=== PATIENT | female | born 1960 | race Caucasian/White ===

== ENCOUNTER 2023-05-20 15:33 | Inpatient (IN) | payer MEDICAID ==
[~2023-05-20] VITALS: Ht 157.5 cm; Wt 77.2 kg
[2023-05-20 15:58] LABS: BASOPHILS # (AUTO) 0.1 X10'3 (0-0.2); BASOPHILS % (AUTO) 0.8 % (0-1); EOSINOPHILS # (AUTO) 0.2 X10'3 (0-0.9); EOSINOPHILS % (AUTO) 1.4 % (0-6); HEMOGLOBIN 13.3 g/dl (12.0-16.0); LYMPHOCYTES % (AUTO) 17.6 % (21-51); MEAN CORPUSCULAR HEMOGLOBIN 30.2 PG (27.0-31.0); MEAN CORPUSCULAR HGB CONC 33.4 g/dL (33.0-36.5); MEAN CORPUSCULAR VOLUME 90.6 FL (78-98); MEAN PLATELET VOLUME 8.2 FL (7.4-10.4); MONOCYTES # (AUTO) 0.9 X10'3 (0-0.9); MONOCYTES % (AUTO) 7.4 % (2-12); NEUTROPHILS # (AUTO) 8.4 X10'3 (1.8-7.7); NEUTROPHILS % (AUTO) 72.8 % (42-75); PLATELET COUNT 302 X10'3 (140-440); RED BLOOD COUNT 4.41 X10'6 (4.20-5.60); RED CELL DISTRIBUTION WIDTH 14.2 % (11.5-14.5); WHITE BLOOD COUNT 11.5 X10'3 (4.5-11.0)
[2023-05-20 16:16] LABS: ALANINE AMINOTRANSFERASE 27 U/L (12-78); ALBUMIN 4.2 G/DL (3.4-5.0); ALBUMIN/GLOBULIN RATIO 1.1 (1.1-1.5); ALKALINE PHOSPHATASE 64 IU/L (46-116); ANION GAP 12 (8-16); ASPARTATE AMINO TRANSFERASE 17 U/L (10-37); BILIRUBIN,TOTAL 0.9 MG/DL (0.1-1.0); BLOOD UREA NITROGEN 16 MG/DL (7-18); BUN/CREATININE RATIO 17.2 (10.0-20.0); CALCIUM 9.6 MG/DL (8.5-10.1); CHLORIDE 101 MMOL/L (99-107); CREATININE 0.93 MG/DL (0.40-0.90); GLUCOSE 120 MG/DL (70-104); POTASSIUM 4.6 MMOL/L (3.5-5.1); SODIUM 139 MMOL/L (135-145); TOTAL CARBON DIOXIDE 26.3 MMOL/L (24-32); TOTAL PROTEIN 8.2 G/DL (6.4-8.2); eCRCL 48 ML/MIN; eGFR 61 ML/MIN
[2023-05-20 16:22] LABS: PRO BRAIN NATRIURETIC PEPTIDE 2288 PG/ML (0-125)
[2023-05-20 16:53] LABS: D-DIMER 21.47 MG/L FEU (0-0.50)
[2023-05-20] MEDS ORDERED: heparin 10,000 units/1 ML INJ IV ONE ×2 (19:40→20:05)
[2023-05-20] MEDS ORDERED: iohexol 350MG/ML 100ml bottle IV ONE (19:47)
[2023-05-20 20:49] LABS: PROTHROMBIN TIME 10.4 SECONDS (9.0-12.0)
[2023-05-20] MEDS: heparin 25,000 UNIT/250ml bag 250 ML IV PRN (21:56)
[2023-05-20 22:16] LABS: BILIRUBIN,URINE NEGATIVE (Neg); CLARITY,URINE CLEAR (Clear); COLOR,URINE YELLOW (Yellow); GLUCOSE, URINE NEGATIVE (Neg); KETONES,URINE TRACE mg/dl (Neg); LEUKOCYTE ESTERASE ,URINE NEGATIVE (Neg); NITRITES, URINE NEGATIVE (Neg); OCCULT BLOOD,URINE TRACE-INTACT (Neg); PH,URINE 6.5 (4.8-8.0); PROTEIN,URINE 30 mg/dl (Neg); UROBILINOGEN,URINE 0.2 E.U/dL (0.2-1.0)
[2023-05-20 22:18] LABS: UA COLLECTION TYPE NON-SPECIFIED
[2023-05-20 22:25] LABS: MUCUS STRANDS NONE SEEN /LPF (Neg); SQUAMOUS EPITHELIAL CELL,UR FEW /LPF (FEW)
[2023-05-20 22:26] LABS: BACTERIA,URINE NONE SEEN /HPF (Neg); RBC,URINE 0-2 /HPF (0-2); WBC,URINE 0-4 /HPF (0-4)
[2023-05-20] MEDS ORDERED: potassium Cl 20 mEq SR tablet PO PRN (23:10)
[2023-05-20] MEDS ORDERED: magnesium 2GM in 50ml NS 50 ML IV PRN (23:10)
[2023-05-20] MEDS ORDERED: acetaminophen 325mg tablet PO PRN (23:10)
[2023-05-20] MEDS ORDERED: potassium Cl 40MEQ/1/2NS 520ml 520 ML IV PRN (23:10)
[2023-05-20] MEDS ORDERED: magnesium hydroxide 30ml (MOM) UD suspension PO PRN (23:10)
[2023-05-20] MEDS ORDERED: magnesium Cl slow-release 64mg tablet PO PRN (23:10)
[2023-05-20] MEDS ORDERED: magnesium 4gm in 100ml NS 100 ML IV PRN (23:10)
[2023-05-20] MEDS ORDERED: mag hydrox/Alum hydrox/simeth 30ml oral suspension PO PRN (23:10)
[2023-05-20] MEDS ORDERED: ondansetron/PF 4mg/2ml inj IV PRN (23:10)
[2023-05-21 03:58] LABS: BASOPHILS # (AUTO) 0.1 X10'3 (0-0.2); BASOPHILS % (AUTO) 0.6 % (0-1); EOSINOPHILS # (AUTO) 0.2 X10'3 (0-0.9); EOSINOPHILS % (AUTO) 1.7 % (0-6); HEMATOCRIT 36.2 % (35.0-45.0); HEMOGLOBIN 12.2 g/dl (12.0-16.0); LYMPHOCYTES # (AUTO) 3.4 X10'3 (1.1-4.8); MEAN CORPUSCULAR HEMOGLOBIN 30.3 PG (27.0-31.0); MEAN CORPUSCULAR HGB CONC 33.7 g/dL (33.0-36.5); MEAN CORPUSCULAR VOLUME 89.8 FL (78-98); MEAN PLATELET VOLUME 8.1 FL (7.4-10.4); MONOCYTES # (AUTO) 0.7 X10'3 (0-0.9); MONOCYTES % (AUTO) 6.6 % (2-12); NEUTROPHILS % (AUTO) 58.1 % (42-75); PLATELET COUNT 264 X10'3 (140-440); RED BLOOD COUNT 4.03 X10'6 (4.20-5.60); RED CELL DISTRIBUTION WIDTH 14.2 % (11.5-14.5); WHITE BLOOD COUNT 10.4 X10'3 (4.5-11.0)
[2023-05-21 04:08] LABS: ALANINE AMINOTRANSFERASE 19 U/L (12-78); ALBUMIN 3.4 G/DL (3.4-5.0); ALBUMIN/GLOBULIN RATIO 0.9 (1.1-1.5); ALKALINE PHOSPHATASE 48 IU/L (46-116); ANION GAP 10 (8-16); ASPARTATE AMINO TRANSFERASE 20 U/L (10-37); BILIRUBIN,TOTAL 1.1 MG/DL (0.1-1.0); BLOOD UREA NITROGEN 11 MG/DL (7-18); BUN/CREATININE RATIO 16.7 (10.0-20.0); CALCIUM 8.9 MG/DL (8.5-10.1); CHLORIDE 103 MMOL/L (99-107); CREATININE 0.66 MG/DL (0.40-0.90); GLUCOSE 124 MG/DL (70-104); MAGNESIUM 2.1 MG/DL (1.5-2.4); POTASSIUM 3.4 MMOL/L (3.5-5.1); SODIUM 140 MMOL/L (135-145); TOTAL CARBON DIOXIDE 27.3 MMOL/L (24-32); TOTAL PROTEIN 7.2 G/DL (6.4-8.2); eCRCL 68 ML/MIN; eGFR 90 ML/MIN
[2023-05-21] MEDS: HYDROcodone/acetaminophen 5mg/325mg tablet PO PRN ×3 (04:37→19:36)
[2023-05-21] MEDS: docusate sod 100mg capsule PO SCH ×2 (08:00→19:24)
[2023-05-21] MEDS: K and/or MAG REPLACEMENT MC SCH ×2 (08:00→19:38)
[2023-05-21] MEDS: potassium Cl 20 mEq SR tablet PO PRN ×2 (10:32→19:40)
[2023-05-21] MEDS ORDERED: DICL20GE TOP (11:11)
[2023-05-21] MEDS ORDERED: HYDR-3965 PO (11:11)
[2023-05-21] MEDS ORDERED: TRIA15CR62 TOP (11:22)
[2023-05-21] MEDS ORDERED: HYDROcodone/acetaminophen 5mg/325mg tablet PO PRN (14:55)
[2023-05-21] MEDS: DICLOFENAC SODIUM 1% gel 1 APPLIC APPLIC TP SCH (21:00)
[2023-05-21 22:00] VITALS: BP 172/109; PULSE 89; RESP 14; TEMP 98.5; O2SAT 97
[2023-05-22] VITALS (9 sets, daily range): BP systolic 114–134; BP diastolic 69–94; PULSE 76–95; RESP 11–23; TEMP 97.7–98.9; O2SAT 93–100
[2023-05-22] MEDS: HYDROcodone/acetaminophen 5mg/325mg tablet PO PRN ×5 (00:29→21:06)
[2023-05-22] MEDS: heparin 10,000 units/1 ML INJ IV PRN ×2 (02:36→21:20)
[2023-05-22] MEDS: DICLOFENAC SODIUM 1% gel 1 APPLIC APPLIC TP SCH ×4 (07:05→21:09)
[2023-05-22] MEDS: docusate sod 100mg capsule PO SCH ×2 (07:07→21:05)
[2023-05-22] MEDS: K and/or MAG REPLACEMENT MC SCH ×2 (08:00→18:24)
[2023-05-22 08:31] LABS: BASOPHILS # (AUTO) 0.1 X10'3 (0-0.2); BASOPHILS % (AUTO) 0.6 % (0-1); EOSINOPHILS # (AUTO) 0.2 X10'3 (0-0.9); EOSINOPHILS % (AUTO) 2.6 % (0-6); HEMATOCRIT 36.8 % (35.0-45.0); HEMOGLOBIN 12.2 g/dl (12.0-16.0); LYMPHOCYTES # (AUTO) 2.4 X10'3 (1.1-4.8); LYMPHOCYTES % (AUTO) 27.6 % (21-51); MEAN CORPUSCULAR HEMOGLOBIN 30.1 PG (27.0-31.0); MEAN CORPUSCULAR HGB CONC 33.1 g/dL (33.0-36.5); MEAN PLATELET VOLUME 8.5 FL (7.4-10.4); MONOCYTES # (AUTO) 0.6 X10'3 (0-0.9); MONOCYTES % (AUTO) 6.9 % (2-12); NEUTROPHILS # (AUTO) 5.5 X10'3 (1.8-7.7); NEUTROPHILS % (AUTO) 62.3 % (42-75); PLATELET COUNT 267 X10'3 (140-440); RED BLOOD COUNT 4.04 X10'6 (4.20-5.60); RED CELL DISTRIBUTION WIDTH 13.9 % (11.5-14.5); WHITE BLOOD COUNT 8.9 X10'3 (4.5-11.0)
[2023-05-22 09:05] LABS: ALANINE AMINOTRANSFERASE 20 U/L (12-78); ALBUMIN 3.2 G/DL (3.4-5.0); ALBUMIN/GLOBULIN RATIO 0.9 (1.1-1.5); ALKALINE PHOSPHATASE 47 IU/L (46-116); ASPARTATE AMINO TRANSFERASE 15 U/L (10-37); BILIRUBIN,TOTAL 1.2 MG/DL (0.1-1.0); BLOOD UREA NITROGEN 18 MG/DL (7-18); BUN/CREATININE RATIO 31.6 (10.0-20.0); CALCIUM 8.9 MG/DL (8.5-10.1); CHLORIDE 103 MMOL/L (99-107); CREATININE 0.57 MG/DL (0.40-0.90); GLUCOSE 111 MG/DL (70-104); MAGNESIUM 2.1 MG/DL (1.5-2.4); TOTAL CARBON DIOXIDE 24.9 MMOL/L (24-32); TOTAL PROTEIN 6.8 G/DL (6.4-8.2); eCRCL 79 ML/MIN; eGFR > 90 ML/MIN
[2023-05-22 09:08] LABS: ANION GAP 13 (8-16); SODIUM 141 MMOL/L (135-145)
[2023-05-22] MEDS: heparin 25,000 UNIT/250ml bag 250 ML IV PRN (15:09)
[2023-05-23 02:00] VITALS: BP 126/67; PULSE 76; RESP 14; TEMP 97.9; O2SAT 95
[2023-05-23 04:20] LABS: BASOPHILS # (AUTO) 0.1 X10'3 (0-0.2); BASOPHILS % (AUTO) 0.6 % (0-1); EOSINOPHILS # (AUTO) 0.3 X10'3 (0-0.9); EOSINOPHILS % (AUTO) 3.4 % (0-6); HEMATOCRIT 35.3 % (35.0-45.0); HEMOGLOBIN 11.7 g/dl (12.0-16.0); LYMPHOCYTES # (AUTO) 3.4 X10'3 (1.1-4.8); LYMPHOCYTES % (AUTO) 38.4 % (21-51); MEAN CORPUSCULAR HEMOGLOBIN 29.7 PG (27.0-31.0); MEAN CORPUSCULAR HGB CONC 33.3 g/dL (33.0-36.5); MEAN CORPUSCULAR VOLUME 89.3 FL (78-98); MEAN PLATELET VOLUME 8.4 FL (7.4-10.4); MONOCYTES # (AUTO) 0.5 X10'3 (0-0.9); MONOCYTES % (AUTO) 6.2 % (2-12); NEUTROPHILS # (AUTO) 4.5 X10'3 (1.8-7.7); NEUTROPHILS % (AUTO) 51.4 % (42-75); PLATELET COUNT 299 X10'3 (140-440); RED BLOOD COUNT 3.95 X10'6 (4.20-5.60); RED CELL DISTRIBUTION WIDTH 13.7 % (11.5-14.5); WHITE BLOOD COUNT 8.8 X10'3 (4.5-11.0)
[2023-05-23 04:23] LABS: ALANINE AMINOTRANSFERASE 17 U/L (12-78); ALBUMIN 3.1 G/DL (3.4-5.0); ALBUMIN/GLOBULIN RATIO 0.8 (1.1-1.5); ALKALINE PHOSPHATASE 44 IU/L (46-116); ANION GAP 8 (8-16); ASPARTATE AMINO TRANSFERASE 16 U/L (10-37); BILIRUBIN,TOTAL 0.9 MG/DL (0.1-1.0); BLOOD UREA NITROGEN 24 MG/DL (7-18); BUN/CREATININE RATIO 34.8 (10.0-20.0); CHLORIDE 104 MMOL/L (99-107); CREATININE 0.69 MG/DL (0.40-0.90); GLUCOSE 114 MG/DL (70-104); MAGNESIUM 2.1 MG/DL (1.5-2.4); POTASSIUM 4.1 MMOL/L (3.5-5.1); SODIUM 138 MMOL/L (135-145); TOTAL CARBON DIOXIDE 25.8 MMOL/L (24-32); TOTAL PROTEIN 6.8 G/DL (6.4-8.2); eCRCL 65 ML/MIN; eGFR 86 ML/MIN
[2023-05-23] MEDS: heparin 25,000 UNIT/250ml bag 250 ML IV PRN (05:43)
[2023-05-23 07:30] VITALS: BP 123/61; PULSE 75; RESP 18; TEMP 97.7; O2SAT 98
[2023-05-23] MEDS: DICLOFENAC SODIUM 1% gel 1 APPLIC APPLIC TP SCH ×2 (07:30→13:00)
[2023-05-23 08:00] VITALS: RESP 23; O2SAT 98
[2023-05-23] MEDS: K and/or MAG REPLACEMENT MC SCH (08:00)
[2023-05-23] MEDS: docusate sod 100mg capsule PO SCH (09:34)
[2023-05-23] MEDS: HYDROcodone/acetaminophen 5mg/325mg tablet PO PRN (11:13)
[2023-05-23 11:38] VITALS: BP 130/97; PULSE 87; RESP 15; TEMP 98; O2SAT 96
[2023-05-23] MEDS ORDERED: apixaban 5mg tablet PO STA (14:04)
[2023-05-23] MEDS ORDERED: APIX5TAB3 PO (14:23)
== END 2023-05-23 15:08 | disposition home or self-care (01) | DRG 197 ==
LOC: ER 15:35 → ED HOLD 23:08 → PCU 3S 05-21 21:54
PROVIDERS: ADMIT Internal Medicine; ATTEND Family Medicine
PROC: B32T1ZZ Computerized Tomography (CT Scan) of Left Pulmonary Artery using Low Osmolar Contrast (ICD-10-PCS; principal; 2023-05-20)
PROC: B3201ZZ Computerized Tomography (CT Scan) of Thoracic Aorta using Low Osmolar Contrast (ICD-10-PCS; 2023-05-20)
PROC: B32S1ZZ Computerized Tomography (CT Scan) of Right Pulmonary Artery using Low Osmolar Contrast (ICD-10-PCS; 2023-05-20)
DX: I82.432 Acute embolism and thrombosis of left popliteal vein (principal); I26.99 Other pulmonary embolism without acute cor pulmonale; I21.4 Non-ST elevation (NSTEMI) myocardial infarction; E66.9 Obesity, unspecified; I82.462 Acute embolism and thrombosis of left calf muscular vein; I82.4Y2 Acute embolism and thrombosis of unspecified deep veins of left proximal lower extremity; M47.812 Spondylosis without myelopathy or radiculopathy, cervical region; G89.29 Other chronic pain; M40.209 Unspecified kyphosis, site unspecified; M19.90 Unspecified osteoarthritis, unspecified site; I82.452 Acute embolism and thrombosis of left peroneal vein; I51.9 Heart disease, unspecified; Z63.4 Disappearance and death of family member; Z82.3 Family history of stroke; Z87.891 Personal history of nicotine dependence; Z82.49 Family history of ischemic heart disease and other diseases of the circulatory system; Z79.01 Long term (current) use of anticoagulants; Z68.31 Body mass index [BMI] 31.0-31.9, adult
CPT/HCPCS: 36415; 71045; 71275; 80053; 81001; 83735; 83880; 84484; 85025; 85379; 85610; 85730; 87081; 93005; 93306; 93971; 99285; A4615; G0378; J1644; J3490; Q9967

== ENCOUNTER → 2023-08-23 | Outpatient (CLI) | payer MEDICAID ==
[~2023-08-23] MED LIST: APIX5TAB3 PO; DICL20GE TOP; TRIA15CR62 TOP
== END | disposition home or self-care (01) ==
LOC: RAD 12:32
PROVIDERS: ATTEND Podiatrist
DX: M79.672 Pain in left foot (principal)
CPT/HCPCS: 73620